=== PATIENT | male | born 1940 | race African-American/Black ===

== ENCOUNTER 2016-11-12 10:54 | Emergency (ER) | payer MEDICARE, MEDICAID ==
[~2016-11-12] VITALS: Ht 172.7 cm; Wt 93.0 kg
[~2016-11-12 10:54] MED LIST: FEBU40TA; GABA-529; LOSA25TA3; LOVA10TA54; METF500T60; SAXA2.5T
[2016-11-12] MEDS ORDERED: HYDROCODONE/ACETAMINOPHEN 5/325MG TABLET PO ONE (11:45)
[2016-11-12 14:49] VITALS: BP 135/86
== END 2016-11-12 14:51 | disposition home or self-care (01) ==
LOC: ER 11:55
DX: S43.401A Unspecified sprain of right shoulder joint, initial encounter (principal); S40.011A Contusion of right shoulder, initial encounter; Z88.0 Allergy status to penicillin; E11.9 Type 2 diabetes mellitus without complications; I10 Essential (primary) hypertension; Z88.2 Allergy status to sulfonamides; W01.0XXA Fall on same level from slipping, tripping and stumbling without subsequent striking against object, initial encounter; Y93.89 Activity, other specified; Y92.89 Other specified places as the place of occurrence of the external cause
CPT/HCPCS: 73030; 99284; A4565

== ENCOUNTER 2019-01-25 15:10 | Emergency (ER) | payer MEDICARE, MEDICAID ==
[~2019-01-25] VITALS: Ht 165.1 cm; Wt 87.0 kg
[2019-01-25 15:12] VITALS: BP 125/80
== END 2019-01-25 16:50 | disposition left against medical advice (07) ==
LOC: ER 15:10
DX: Z53.21 Procedure and treatment not carried out due to patient leaving prior to being seen by health care provider (principal)

== ENCOUNTER 2019-03-08 13:12 | Emergency (ER) | payer MEDICARE, MEDICAID ==
[~2019-03-08] VITALS: Ht 167.6 cm; Wt 94.0 kg
[2019-03-08] MEDS ORDERED: NA PHOS,M-B/NA PHOS,DI-BA ENEMA 118ML PR ONE (18:30)
[2019-03-08] MEDS ORDERED: MAGNESIUM CITRATE 300ML SOLUTION PO ONE (19:15)
[2019-03-08 19:45] VITALS: BP 142/92
== END 2019-03-08 20:00 | disposition home or self-care (01) ==
LOC: ER 13:12
DX: K59.00 Constipation, unspecified (principal); S20.469A Insect bite (nonvenomous) of unspecified back wall of thorax, initial encounter; I10 Essential (primary) hypertension; E11.9 Type 2 diabetes mellitus without complications; M10.9 Gout, unspecified; Z88.2 Allergy status to sulfonamides; Z88.0 Allergy status to penicillin; Z79.84 Long term (current) use of oral hypoglycemic drugs; G62.9 Polyneuropathy, unspecified; W57.XXXA Bitten or stung by nonvenomous insect and other nonvenomous arthropods, initial encounter; Y93.89 Activity, other specified; Y92.018 Other place in single-family (private) house as the place of occurrence of the external cause
CPT/HCPCS: 74022; 82962; 99283